=== PATIENT | female | born 1970 | race Caucasian/White ===

== ENCOUNTER 2018-03-25 11:15 | Outpatient (RCR) | payer OTHER, MEDICAID, SELFPAY ==
--- NOTE | 2018-02-07 14:50 | PT.OTN ---
Current Diagnoses Muscle weakness (generalized) (02/07/18) Other symptoms and signs involving the genitourinary system (02/07/18) Other reduced mobility (02/07/18) On September 11, 2017 our therapy services consisting of Speech, Occupational, and Physical therapy transitioned from [employer] electronic documentation system to a new [employer] electronic system. All documentation prior to September 11 can be found under [employer] saved data. From September 11 forward, all medical record documentation will be in [email or web address].
--- NOTE | 2018-02-07 15:59 | PT.OTN ---
Current Diagnoses Muscle weakness (generalized) (02/07/18) Other symptoms and signs involving the genitourinary system (02/07/18) Other reduced mobility (02/07/18) Physical Therapy Treatment Note PT-OP-A Visit Information Start: 02/07/18 12:46 Freq: Status: Active Protocol: Document 02/07/18 13:45 LRN (Rec: 02/07/18 15:51 LRN [id number]) Out-Patient Physical Therapy Visit Information Visit Information Visit Type Progress Note Visit Note Per pt 3 visits total allowed for all therapies (on [facility]). 2 visits in 2017. 6 visits in 2018. Visit Start Time 13:45 Visit Stop Time 14:45 Total Visit Minutes 60 Visit Number 8 Number of RADAR TECHNICIAN Visits 0 Evaluation Information Evaluation Date 04/17/18 PT-OP-B Current Condition Start: 02/07/18 12:46 Freq: Status: Active Protocol: Document 02/07/18 13:45 LRN (Rec: 02/07/18 15:51 LRN [id number]) Current Condition History of Current Condition Onset Date Several years ago descent felt in perineum. 2 yrs ago fall on [facility]. Current Complaints Pain at coccyx rated 8/10 with transfers sit to stand or sitting > 20' History of Current Condition Several years ago the pt felt a descent in the perineal area and noticed the descent with bowel movements. Sometimes she supports the perineum, allowing her to complete her fecal voiding 10-15% of the time. A secondary condition for which she is receiving physical therapy on [facility], is back pain and Thoracic Outlet. She had fallen onto a post on her tailbone after slipping off a metal bar at a park. She was feeling better in August of this year but incurred a back injury for which she is receiving physical therapy on [facility] and is almost rehabilitated (90% improved). Within the past 2-3 weeks she has had a worsening of tailbone pain, almost to at her initial intensity. Her tailbone pain is present with sitting greater than 15' and with sit to stand transfers. She is having less feeling of perineal descent and admits to being somewhat inconsistent with her home stretches. Treatment Goals Patient/Caregiver Goals Pt goal is to be healthy and fit and to strengthen her pelvic floor and to be painfree in tailbone. Prior Functional Status Baseline Function- ADL's Independent Baseline Function- Mobility Independent Current Functional Impairments (Reported) Functional Limitations- ADL's Painful to sit on regular chairs > 20 minutes. Functional Limitations- Mobility/Gait Painful with sit to stand transfers. PT-OP-F Manual Assessment Start: 02/07/18 12:46 Freq: Status: Active Protocol: Document 02/07/18 13:45 LRN (Rec: 02/07/18 15:51 LRN [id number]) Manual Assessments Soft Tissue Assessment Soft Tissue Mobility Assessment Tender at R>L side of coccyc. Tissue tightness of L hip. Joint Mobility Assessment Joint Mobility Assessment Decreased sacral rotation to the right. PT-OP-I Pelvic Floor Start: 02/07/18 12:46 Freq: Status: Active Protocol: Document 02/07/18 13:45 LRN (Rec: 02/07/18 15:51 LRN [id number]) Pelvic Floor Assessment Pelvic Clock Pelvic Clock 12-3 Hypertonic Pelvic Clock 3-6 Hypertonic Perineal Descent Resting Absent Bearing Absent PT-OP-J Posture/Palpation/Skin Start: 02/07/18 12:46 Freq: Status: Active Protocol: Document 02/07/18 13:45 LRN (Rec: 02/07/18 15:51 LRN [id number]) Palpation Assessment Location ASIS Palpation Details Inflare Left, Anterior Left. Sacrum in left rotation. PT-OP-K Range of Motion Start: 02/07/18 12:46 Freq: Status: Active Protocol: Document 02/07/18 13:45 LRN (Rec: 02/07/18 15:51 LRN [id number]) Hip Goniometric Range of Motion Hip Measured in Degrees Right Passive Testing Position Supine Abduction 40 Internal Rotation 40 External Rotation 75 Left Passive Testing Position Supine Abduction 40 Internal Rotation 35 External Rotation 85 Hip ROM Limitations Comments Hip AD: 25 deg's left, 30 deg' s right. PT-OP-M Strength Start: 02/07/18 12:46 Freq: Status: Active Protocol: Document 02/07/18 13:45 LRN (Rec: 02/07/18 15:51 LRN [id number]) Hip Strength Hip Manual Muscle Testing Right Flexion (L2) 4+ Good+ Extension (S1) 5 Normal External Rotation 5 Normal Internal Rotation 4+ Good+ Left Flexion (L2) 4+ Good+ Extension (S1) 4- Good- External Rotation 5 Normal Internal Rotation 3+ Fair+ PT-OP-Q Treatments Start: 02/07/18 12:46 Freq: Status: Active Protocol: Document 02/07/18 13:45 LRN (Rec: 02/07/18 15:51 LRN [id number]) Therapeutic Exercises Supine Exercises Hip ER stretch Supine Exercise Name Fig 4 Side right Lateral Hip stretch Side left Piriformis stretch Side bilateral Manual Therapy Treatment Soft Tissue Mobilization Sacral border Body Location Bilateral Mobilization Type Cross-Friction Strumming Intensity/Depth Moderate Body Position Prone Sacrocoxygeus Mobilization Type Sustained Pressure Intensity/Depth Moderate Body Position Prone Joint Mobilizations Sacral Direction R rotation of Sacrum Grade III Comments Oscillations Self-Care/Home Management Treatment Education Patient Education Home Exercise Program Activities Self-Care/Home Management Activities Reviewed HEP: Hip stretches, downward dog for ext of sacrum , self manual mob of coccyx on the left side. PT-OP-T Assessment and Plan Start: 02/07/18 12:46 Freq: Status: Active Protocol: Document 02/07/18 13:45 LRN (Rec: 02/07/18 15:51 LRN [id number]) Physical Therapy Assessment Rehab Potential Rehabilitation Potential Good Impairments Impairments Pain Posture ROM Soft Tissue Mobility Strength Other Impairments See below. Other Concerns Age Related Concerns Self employed vacation rental unit, does paper products printer work and farming. Barriers to Rehabilitation Ongoing back pain Current Thoracic Outlet Syndrome Goals Three Impairment Asymmetry of hip AD PROM: 25 deg's L, 20 deg's R. Transmission Rebuilder Goal (LTG) Hip PROM: Adduction: 30 deg's bilaterally. LTG Duration 05/13/18 Two Impairment Decr Pelvic Floor Ms Endurance : [facility]: 5 secs( decreases after 2 sec) Jail Goal (LTG) Musculoskeletal Improvements in: Endurance: 10 sec hold prior to fatigue with contraction in isolation of accessory muscles. LTG Duration 05/13/18 One Impairment Tailbone pain with prolonged sitting and with sit to stand. Jail Goal (LTG) Symptomatic improvments: Decreasing pain: Decreased tailbone pain with sitting and transfers sit to stand. LTG Duration 05/13/18 Progress Towards Goals Progress Comments Pt has returned after an absence of ~5 months with a new onset of tailbone pain complaints equal in intensity to her original pain complaints. The pt has had other health conditions prolonging her recovery with an onset of back pain and complaints of Thoracic Outlet syndrome. Pt had a +response to therapy with pain of 0.8/10 pain with sit to stand after therapy today. Assessment Summary Assessment Pt presents with pain and soft tissue tightness in the region of the Sacrococcygeal ligament and muscles attaching to the sacral border. Physical Therapy Plan Frequency and Duration Frequency of Treatment Intermittent Plan of Care Start Date 04/17/17 Plan of Care End Date 05/13/18 Therapeutic Interventions Therapeutic Interventions Home Exercise Program Joint Mobilizations Manual Therapy Neuromuscular Re-education Self-Care/Home Management Soft Tissue Mobilization Therapeutic Activities Therapeutic Exercises Modalities Biofeedback Cold Pack/Ice Massage Electric Stimulation Hot Packs Next Visit Focus/Plan Next Note Type Discharge Summary Next Visit Plan Possible DC to HEP and Home E- stim unity, if pain resolved and pt able to manage symptoms with self care.
--- NOTE | 2018-02-07 15:59 | PT.OPPOC ---
Current Diagnoses Muscle weakness (generalized) (02/07/18) Other symptoms and signs involving the genitourinary system (02/07/18) Other reduced mobility (02/07/18) Provider Visit Care Team Role Provider Type MAKAYLA Contreras Attending Provider Advanced Vice President Of Development Family Provider Primary Care Provider Specialty: Medical Address: [address] [place] [address], [phone] Email: Plan Of Care PT-OP-T Assessment and Plan Start: 02/07/18 12:46 Freq: Status: Active Protocol: Document 02/07/18 13:45 LRN (Rec: 02/07/18 15:51 LRN [id number]) Physical Therapy Assessment Rehab Potential Rehabilitation Potential Good Impairments Impairments Pain Posture ROM Soft Tissue Mobility Strength Other Impairments See below. 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 Barriers to Rehabilitation Ongoing back pain Current Thoracic Outlet Syndrome Goals Three Impairment Asymmetry of hip AD PROM: 25 deg's L, 20 deg's R. [facility] Goal (LTG) Hip PROM: Adduction: 30 deg's bilaterally. LTG Duration 05/13/18 Two Impairment Decr Pelvic Floor Ms Endurance : [facility]: 5 secs( decreases after 2 sec) [facility] Goal (LTG) Musculoskeletal Improvements in: Endurance: 10 sec hold prior to fatigue with contraction in isolation of accessory muscles. LTG Duration 05/13/18 One Impairment Tailbone pain with prolonged sitting and with sit to stand. [facility] Goal (LTG) Symptomatic improvments: Decreasing pain: Decreased tailbone pain with sitting and transfers sit to stand. LTG Duration 05/13/18 Progress Towards Goals Progress Comments Pt has returned after an absence of ~5 months with a new onset of tailbone pain complaints equal in intensity to her original pain complaints. The pt has had other health conditions prolonging her recovery with an onset of back pain and complaints of Thoracic Outlet syndrome. Pt had a +response to therapy with pain of 0.8/10 pain with sit to stand after therapy today. Assessment Summary Assessment Pt presents with pain and soft tissue tightness in the region of the Sacrococcygeal ligament and muscles attaching to the sacral border. Physical Therapy Plan Frequency and Duration Frequency of Treatment Intermittent Plan of Care Start Date 04/17/17 Plan of Care End Date 05/13/18 Therapeutic Interventions Therapeutic Interventions Home Exercise Program Joint Mobilizations Manual Therapy Neuromuscular Re-education Self-Care/Home Management Soft Tissue Mobilization Therapeutic Activities Therapeutic Exercises Modalities Biofeedback Cold Pack/Ice Massage Electric Stimulation Hot Packs Next Visit Focus/Plan Next Note Type Discharge Summary Next Visit Plan Possible DC to HEP and Home E- stim unity, if pain resolved and pt able to manage symptoms with self care. Plan of Care Dates Plan of Care Start Date 04/17/17 Plan of Care End Date 05/13/18 Please Sign and Return: I have reviewed this Plan of Care and certify that the skilled therapy services above are required to meet the patient?s needs. Physician Signature Date Printed Name and Credentials Clinical Instructor Signature Printed Name and Credentials
--- NOTE | 2018-06-24 09:21 | PT.OPDS ---
Current Diagnoses Muscle weakness (generalized) (03/25/18) Other symptoms and signs involving the genitourinary system (03/25/18) Other reduced mobility (03/25/18) Provider Visit Care Team Role Provider Type MAKAYLA Contreras Attending Provider Advanced Sales And Marketing Executive Family Provider Primary Care Provider Specialty: Medical Address: [address] [place] [address], [phone] Email: Visit Number Visit Number 9 Discharge Summary PT-OP-B Current Condition Start: 02/07/18 12:46 Freq: Status: Active Protocol: Document 02/07/18 13:45 LRN (Rec: 02/07/18 15:51 LRN [id number]) Current Condition History of Current Condition Onset Date Several years ago descent felt in perineum. 2 yrs ago fall on tailbone. Current Complaints Pain at coccyx rated 8/10 with transfers sit to stand or sitting > 20' History of Current Condition Several years ago the pt felt a descent in the perineal area and noticed the descent with bowel movements. Sometimes she supports the perineum, allowing her to complete her fecal voiding 10-15% of the time. A secondary condition for which she is receiving physical therapy on [facility], is back pain and Thoracic Outlet. She had fallen onto a post on her tailbone after slipping off a metal bar at a park. She was feeling better in August of this year but incurred a back injury for which she is receiving physical therapy on [facility] and is almost rehabilitated (90% improved). Within the past 2-3 weeks she has had a worsening of tailbone pain, almost to at her initial intensity. Her tailbone pain is present with sitting greater than 15' and with sit to stand transfers. She is having less feeling of perineal descent and admits to being somewhat inconsistent with her home stretches. Treatment Goals Patient/Caregiver Goals Pt goal is to be healthy and fit and to strengthen her pelvic floor and to be painfree in tailbone. Prior Functional Status Baseline Function- ADL's Independent Baseline Function- Mobility Independent Current Functional Impairments (Reported) Functional Limitations- ADL's Painful to sit on regular chairs > 20 minutes. Functional Limitations- Mobility/Gait Painful with sit to stand transfers. PT-OP-F Manual Assessment Start: 02/07/18 12:46 Freq: Status: Active Protocol: Document 03/25/18 11:35 LRN (Rec: 03/25/18 14:52 LRN [id number]) Manual Assessments Soft Tissue Assessment Soft Tissue Mobility Assessment Tissue tightness on L side of coccyx. Mild tightness of L QL and upper gluteals. Joint Mobility Assessment Joint Mobility Assessment Sacrum is in slight R rotation . L2-L4 in slight R rotation. PT-OP-I Pelvic Floor Start: 02/07/18 12:46 Freq: Status: Active Protocol: Document 03/25/18 11:35 LRN (Rec: 03/25/18 14:52 LRN [id number]) Pelvic Floor Assessment Pelvic Clock Pelvic Clock 12-3 Tightness Pelvic Clock Other Tightness in region of Obturator Internus. Perineal Descent Resting Absent Bearing Absent Contraction Ability Muscle Endurance (Seconds) 5 PT-OP-J Posture/Palpation/Skin Start: 02/07/18 12:46 Freq: Status: Active Protocol: Document 02/07/18 13:45 LRN (Rec: 02/07/18 15:51 LRN [id number]) Palpation Assessment Location ASIS Palpation Details Inflare Left, Anterior Left. Sacrum in left rotation. PT-OP-K Range of Motion Start: 02/07/18 12:46 Freq: Status: Active Protocol: Document 03/25/18 11:35 LRN (Rec: 03/25/18 12:49 LRN [id number]) Hip Goniometric Range of Motion Hip Measured in Degrees Right Passive Testing Position Supine Abduction 40 Internal Rotation 40 External Rotation 75 Left Passive Testing Position Supine Abduction 42 Internal Rotation 35 External Rotation 75 PT-OP-M Strength Start: 02/07/18 12:46 Freq: Status: Active Protocol: Document 02/07/18 13:45 LRN (Rec: 02/07/18 15:51 LRN [id number]) Hip Strength Hip Manual Muscle Testing Right Flexion (L2) 4+ Good+ Extension (S1) 5 Normal External Rotation 5 Normal Internal Rotation 4+ Good+ Left Flexion (L2) 4+ Good+ Extension (S1) 4- Good- External Rotation 5 Normal Internal Rotation 3+ Fair+ PT-OP-T Assessment and Plan Start: 02/07/18 12:46 Freq: Status: Active Protocol: Document 06/24/18 09:04 LRN (Rec: 06/24/18 09:21 LRN [id number]) Physical Therapy Assessment Goals Three Impairment Asymmetry of hip AD PROM: 25 deg's L, 20 deg's R. Nursing Home Goal (LTG) Hip PROM: Adduction: 30 deg's bilaterally. LTG Duration 05/13/18 Pt unavailable for final assessment Two Impairment Decr Pelvic Floor Ms Endurance : [facility]: 5 secs( decreases after 2 sec) [employer] Goal (LTG) Musculoskeletal Improvements in: Endurance: 10 sec hold prior to fatigue with contraction in isolation of accessory muscles. LTG Duration 05/13/18 Pt unavailable for final assessment One Impairment Tailbone pain with prolonged sitting and with sit to stand. Nursing Home Goal (LTG) Symptomatic improvments: Decreasing pain: Decreased tailbone pain with sitting and transfers sit to stand. LTG Duration 05/13/18 Goal partially met. Symptoms variable Assessment Summary Assessment Pt is being discharged from therapy due to lack of attendance. She was last seen 03/25/2018. The last attended visit was after ~2 months of being on an independent HEP. She showed improved symmetry of muscle tone of the hips but with asymmetry of mobility for ER/ IR. She had tightness on the left side of the coccyx, felt both externally and minimally with internal palpation; and less rotation of the sacrum/ lumbar spine. Pt forgot her vaginal electrode; therefore assessment of her PF strength and endurance was not performed. It was recommended the pt consider renting a PF e-stim unit for when episodes of increased pain occur. Physical Therapy Plan Discharge Physical Therapy Discharge Reasons No Longer Attending PT Discharge Comments Pt will need a new referral if further therapy is needed. Thank you for your referral. Next Visit Focus/Plan Next Note Type Discharge Summary Next Visit Plan .
== END 2018-07-30 12:12 ==
LOC: PHYS 11:15
PROVIDERS: Family Provider Nurse Practitioner Family; PCP Nurse Practitioner Family; Visit Provider Nurse Practitioner Family
DX: R39.89 Other symptoms and signs involving the genitourinary system (principal); Z74.09 Other reduced mobility; M62.81 Muscle weakness (generalized)
CPT/HCPCS: 97110; 97140

== ENCOUNTER → 2020-08-16 14:38 | Outpatient (CLI) | payer OTHER, MEDICAID, SELFPAY ==
[2020-08-17 10:43] LABS: COVID19 -Nasal RAPID Negative (Negative)
== END ==
PROVIDERS: PCP Physician Assistant; Visit Provider Physician Assistant
DX: Z20.822 Contact with and (suspected) exposure to COVID-19 (principal)
CPT/HCPCS: 87635; C9803

== ENCOUNTER → 2020-09-03 13:53 | Outpatient (CLI) | payer OTHER, MEDICAID, SELFPAY ==
[2020-09-05 08:18] LABS: Alpha Fetoprotein 10.1 ng/mL (0.0-8.3)
== END ==
PROVIDERS: Physician Assistant; PCP Physician Assistant; Visit Provider Family Medicine
DX: K76.89 Other specified diseases of liver (principal)
CPT/HCPCS: 82105; 82784; 83516; 86704; 86706; 86708; 86803; 87340

== ENCOUNTER → 2020-09-16 14:43 | Outpatient (CLI) | payer OTHER, MEDICAID, SELFPAY ==
--- NOTE | 2020-09-16 | DI.MRI.S_ITS ---
PROCEDURE: MR KNEE RT WO CON INDICATIONS: DERANGEMENT OF RIGHT KNEE TECHNIQUE: Noncontrast sagittal PD fast spin echo and T2 fast spin echo with fat saturation, sagittal 3-D FLASH with fat saturation; coronal T1 spin echo and PD fast spin echo with fat saturation, and axial PD fast spin echo with fat saturation through the knee. COMPARISON: Outside Facility, RG, XR KNEE 3V RIGHT, 07/07/2020, 14:45. Outside Facility, RG, XR KNEE 3V LEFT, 07/07/2020, 14:45. FINDINGS: Image quality: Excellent. Menisci: There is linear oblique high T2 signal intensity within the posterior horn medial meniscus at the meniscal root ligament insertion site, indicating radial tearing. Lateral meniscus is intact. Cruciate ligaments: The anterior and posterior cruciate ligaments appear intact. Medial structures: The medial collateral ligament appears intact. Visualized portions of the pes anserinus tendons appear normal. No abnormal bursal fluid. Lateral structures: The lateral collateral ligament, long and short heads of the biceps femoris tendon appear intact. The popliteus tendon appears normal. Iliotibial band appears normal. Anterior structures: The quadriceps and patellar tendons appear intact. Patellar alignment is normal. No femoral trochlear dysplasia or ventral trochlear prominence. Minimal edema in the superolateral aspect of the infrapatellar fat pad. Bones and cartilage: No bone marrow contusions or fractures. Mild articular cartilage loss diffusely overlies the weight-bearing aspects of the medial and lateral compartments. Articular cartilage fibrillation overlies the medial and lateral patellar facets. Joint space: There is a small knee joint effusion and a trace Carolina's cyst. Normal appearing synovial plicae are incidentally noted. IMPRESSION: 1. Medial meniscal tear. 2. Small knee joint effusion and trace Carolina's cyst. 3. Tricompartmental articular cartilage loss. Dictated by: Jessy Moreno M.D. on 09/16/2020 at 16:13 Approved by: Jessy Moreno M.D. on 09/16/2020 at 16:15
== END ==
PROVIDERS: PCP Physician Assistant; Referring Provider Physician Assistant Medical; Visit Provider Physician Assistant Medical
DX: S83.241A Other tear of medial meniscus, current injury, right knee, initial encounter (principal); M25.461 Effusion, right knee
CPT/HCPCS: 73721

== ENCOUNTER → 2021-01-14 13:24 | Outpatient (CLI) | payer OTHER, MEDICAID, SELFPAY | PROVIDERS: PCP Physician Assistant; Referring Provider Physician Assistant Medical; Visit Provider Physician Assistant Medical | DX: R19.5 Other fecal abnormalities (principal) | CPT/HCPCS: 87045; 87177; 87899 ==

== ENCOUNTER → 2021-02-14 12:09 | Outpatient (CLI) | payer OTHER, MEDICAID, SELFPAY ==
[2021-02-14 20:25] LABS: Add Manual Diff / Slide Review NO; Basophils Absolute Auto 0 /uL (0-100); Basophils Percent Auto 0.5 % (0-2); Eosinophils Absolute Auto 300 /uL (0-450); Eosinophils Percent Auto 3.1 % (2-4); Hematocrit 42.9 % (36-46); Hemoglobin 14.2 g/dL (12.0-16.0); Lymphocytes Absolute Auto 2900 /uL (1100-4500); Lymphocytes Percent Auto 33.1 % (25-40); Mean Corpuscular HGB Conc 33.1 % (30-36); Mean Corpuscular Hemoglobin 30.1 PG (26-34); Monocytes Absolute Auto 700 /uL (0-900); Monocytes Percent Auto 8.3 % (3-14); Neutrophils Absolute Auto 4900 /uL (1500-7000); Platelet Count 252 X10^3/uL (150-400); Red Blood Cell Count 4.72 X10^6/uL (4.0-5.2); Red Cell Distribution Width 13.3 % (11.6-14.8); White Blood Cell Count 8.9 X10^3/uL (4.5-11.0)
== END ==
PROVIDERS: PCP Physician Assistant; Referring Provider Physician Assistant Medical; Visit Provider Physician Assistant Medical
DX: R19.5 Other fecal abnormalities (principal)
CPT/HCPCS: 85025

== ENCOUNTER → 2021-06-28 13:24 | Outpatient (CLI) | payer OTHER, MEDICAID, SELFPAY | PROVIDERS: PCP Physician Assistant; Visit Provider Physician Assistant | DX: A07.8 Other specified protozoal intestinal diseases (principal); R11.0 Nausea | CPT/HCPCS: 87177 ==

== ENCOUNTER → 2022-01-11 10:34 | Outpatient (CLI) | payer OTHER, MEDICAID, SELFPAY ==
[2022-01-11 19:27] LABS: Add Manual Diff / Slide Review NO; Basophils Absolute Auto 100 /uL (0-100); Basophils Percent Auto 0.7 % (0-2); Eosinophils Absolute Auto 300 /uL (0-450); Eosinophils Percent Auto 2.6 % (2-4); Hematocrit 40.9 % (36-46); Hemoglobin 14.2 g/dL (12.0-16.0); Lymphocytes Absolute Auto 3200 /uL (1100-4500); Lymphocytes Percent Auto 27.4 % (25-40); Mean Corpuscular HGB Conc 34.7 % (30-36); Mean Corpuscular Hemoglobin 30.9 PG (26-34); Mean Corpuscular Volume 89.2 fL (80-100); Monocytes Absolute Auto 800 /uL (0-900); Monocytes Percent Auto 7.2 % (3-14); Neutrophils Absolute Auto 7300 /uL (1500-7000); Neutrophils Percent Auto 62.1 % (50-75); Platelet Count 237 X10^3/uL (150-400); Red Blood Cell Count 4.58 X10^6/uL (4.0-5.2); White Blood Cell Count 11.7 X10^3/uL (4.5-11.0)
[2022-01-11 19:57] LABS: Hemoglobin A1C% w Est Avg Glu 5.2 % (4.0-6.0)
[2022-01-11 20:05] LABS: Alanine Aminotransferase 39 IU/L (<35); Albumin Globulin Ratio 1.3 (1.0-2.8); Alkaline Phosphatase 74 U/L (38-126); Aspartate Aminotransferase 38 IU/L (14-36); BUN Creatinine Ratio 13.6 (6-22); Bilirubin Total 0.3 mg/dL (0.2-1.3); Blood Urea Nitrogen 12 mg/dL (7-17); Calcium 9.2 mg/dL (8.4-10.2); Carbon Dioxide 25 mmol/L (22-32); Chloride 104 mmol/L (98-107); Cholesterol 204 mg/dL (140-199); Estimated Glomerular Filt Rate > 60 mL/min (>60); Glucose 91 mg/dL (70-100); HDL Cholesterol 56 mg/dL (40-60); HEMOLYSIS < 15 (0-50); LDL Cholesterol Calculated 115 mg/dL (<100); Potassium 4.3 mmol/L (3.4-5.1); Sodium 136 mmol/L (137-145); Triglycerides 163 mg/dL (35-150)
[2022-01-11 20:15] LABS: Free T4, Direct Thyroxine 0.87 ng/dL (0.78-2.19)
[2022-01-11 20:16] LABS: Vitamin D 25 Hydroxy (D3) 32.7 ng/mL (30.0-100.0)
[2022-01-11 20:29] LABS: Thyroid Stimulating Hormone 3.19 uIU/mL (0.47-4.68)
== END ==
PROVIDERS: PCP Physician Assistant; Visit Provider Physician Assistant
DX: E55.9 Vitamin D deficiency, unspecified (principal); K75.81 Nonalcoholic steatohepatitis (NASH)
CPT/HCPCS: 80053; 80061; 82306; 83036; 84439; 84443; 85025

== ENCOUNTER → 2022-02-09 10:33 | Outpatient (CLI) | payer OTHER, MEDICAID, SELFPAY | PROVIDERS: PCP Physician Assistant; Visit Provider Physician Assistant | DX: R07.0 Pain in throat (principal) | CPT/HCPCS: 87070; 87880 ==

== ENCOUNTER → 2022-04-17 07:02 | Outpatient (CLI) | payer OTHER, MEDICAID, SELFPAY ==
[2022-04-17 22:06] LABS: COVID19 - ORCAS (NP or Nasal) Negative (Negative)
== END ==
PROVIDERS: PCP Physician Assistant; Visit Provider Physician Assistant
DX: Z20.822 Contact with and (suspected) exposure to COVID-19 (principal); Z01.812 Encounter for preprocedural laboratory examination
CPT/HCPCS: C9803; U0003

== ENCOUNTER → 2022-06-27 14:10 | Outpatient (CLI) | payer OTHER, MEDICAID, SELFPAY ==
[2022-06-27 19:48] LABS: Hemoglobin A1C% w Est Avg Glu 5.1 % (4.0-6.0)
[2022-06-27 19:55] LABS: TSH w/ Reflex to FT4 2.55 uIU/mL (0.47-4.68)
[2022-06-27 20:14] LABS: Vitamin B12 571 pg/mL (239-931)
[2022-06-30 12:35] LABS: Albumin 3.9 g/dL (2.9-4.4); Alpha-1-Globulin 0.2 g/dL (0.0-0.4); Alpha-2-Globulin 0.6 g/dL (0.4-1.0); Gamma Globulin 1.2 g/dL (0.4-1.8); Protein, Total 6.9 g/dL (6.0-8.5)
== END ==
PROVIDERS: PCP Family Medicine; Visit Provider Family Medicine
DX: G62.9 Polyneuropathy, unspecified (principal)
CPT/HCPCS: 82607; 83036; 84155; 84165; 84443

== ENCOUNTER → 2022-09-14 12:05 | Outpatient (CLI) | payer OTHER, MEDICAID, SELFPAY ==
[2022-09-14 20:09] LABS: Alanine Aminotransferase 17 IU/L (<35); Albumin 4.4 g/dL (3.5-5.0); Albumin Globulin Ratio 1.4 (1.0-2.8); Alkaline Phosphatase 72 U/L (38-126); Aspartate Aminotransferase 24 IU/L (14-36); BUN Creatinine Ratio 13.1 (6-22); Bilirubin Total 0.7 mg/dL (0.2-1.3); Blood Urea Nitrogen 13 mg/dL (7-17); C-Reactive Protein Quant 0.6 mg/dL (<1.0); Calcium 9.5 mg/dL (8.4-10.2); Carbon Dioxide 27 mmol/L (22-32); Chloride 104 mmol/L (98-107); Estimated Glomerular Filt Rate > 60 mL/min (>60); Globulin 3.2 g/dL (1.7-4.1); Glucose 64 mg/dL (70-100); HEMOLYSIS < 15 (0-50); Potassium 4.2 mmol/L (3.4-5.1); Sodium 139 mmol/L (137-145); Total Protein 7.6 g/dL (6.3-8.2)
[2022-09-14 20:39] LABS: Erythrocyte Sedimentation Rate 9 MM/HR (0-20)
[2022-09-14 20:59] LABS: TSH w/ Reflex to FT4 2.25 uIU/mL (0.47-4.68)
[2022-09-14 21:16] LABS: Hep C Virus Ab w/Reflex Quant NEGATIVE s/c (NEGATIVE)
== END ==
PROVIDERS: PCP Family Medicine; Visit Provider Family Medicine
DX: G62.9 Polyneuropathy, unspecified (principal); K76.0 Fatty (change of) liver, not elsewhere classified; R79.89 Other specified abnormal findings of blood chemistry
CPT/HCPCS: 80053; 84443; 85651; 86140; 86803

== ENCOUNTER → 2023-02-19 10:00 | Outpatient (CLI) | payer OTHER, MEDICAID, SELFPAY | PROVIDERS: PCP Family Medicine; Visit Provider Physician Assistant | DX: R19.8 Other specified symptoms and signs involving the digestive system and abdomen (principal) | CPT/HCPCS: 87045; 87177; 87329; 87899 ==

== ENCOUNTER → 2023-06-14 17:28 | Outpatient (CLI) | payer OTHER, MEDICAID, SELFPAY | PROVIDERS: PCP Family Medicine; Visit Provider Nurse Practitioner Adult Health | DX: N89.8 Other specified noninflammatory disorders of vagina (principal) | CPT/HCPCS: 87798; 87801 ==

== ENCOUNTER → 2023-08-21 15:26 | Outpatient (CLI) | payer OTHER, MEDICAID, SELFPAY ==
--- NOTE | 2023-08-21 15:27 | DI.US.S_ITS ---
PROCEDURE: US PELVIC COMPLETE INDICATIONS: FOLLOW UP FIBROID TECHNIQUE: Real-time scanning was performed of the pelvic organs, with image documentation. Additional endovaginal scanning was necessary due to incomplete visualization of the adnexal and endometrial structures by transabdominal scanning. COMPARISON: [facility], US, PELVIC COMPLETE, 11/10/2015, 11:50. FINDINGS: Uterus: Uterus is anteverted and normal in size at 8.4 x 8.8 x 5.2 cm. The myometrium is homogeneous. The endometrium measures approximately 6 mm in diameter. There is a right posterior intramural fibroid which measures 3.4 x 3.3 x 3.5 cm and a left anterior subserosal fibroid which measures 1.9 x 2.6 x 1.7 cm. Ovaries: The right ovary is not visualized. The left ovary measures 2.1 x 1.7 x 0.9 cm, with a calculated ovarian volume of 1.6 cc. The ovaries have a normal sonographic appearance. There are fewer than 12 follicles in the left ovary. No adnexal masses are seen. Other: No pathologic free abdominal or pelvic fluid. IMPRESSION: 1. Fibroid uterus. The size of the uterine fibroids on the current study are difficult to compare to the prior study dated October 20, 2020 given variation in measurements, ill-defined borders of the fibroids, and differential positioning of the uterus. We strive to produce accurate, complete, and clear reports of imaging services. To assist us in improving patient care, this report was composed using standard report templates and voice recognition software. Therefore, it may contain abnormal punctuation, insertions and/or omissions. Occasional wrong-word or sound-alike substitutions may occur. Though we review the report and make efforts to correct it, we do recommend that the report be read carefully in proper context to recognize any text inaccuracies. Dictated by: Carla Arellano M.D. on 08/22/2023 at 17:17 Approved by: Carla Arellano M.D. on 08/22/2023 at 17:21
== END ==
PROVIDERS: PCP Family Medicine; Referring Provider Nurse Practitioner Adult Health; Visit Provider Nurse Practitioner Adult Health
DX: D25.2 Subserosal leiomyoma of uterus (principal); D25.1 Intramural leiomyoma of uterus
CPT/HCPCS: 76830; 76856

== ENCOUNTER → 2023-09-27 09:41 | Outpatient (CLI) | payer OTHER, MEDICAID, SELFPAY ==
[2023-09-28 19:17] LABS: Alanine Aminotransferase 21 IU/L (<35); Albumin 4.7 g/dL (3.5-5.0); Albumin Globulin Ratio 1.7 (1.0-2.8); Alkaline Phosphatase 72 U/L (38-126); Aspartate Aminotransferase 28 IU/L (14-36); BUN Creatinine Ratio 18.2 (6-22); Bilirubin Total 0.6 mg/dL (0.2-1.3); Blood Urea Nitrogen 16 mg/dL (7-17); Calcium 9.5 mg/dL (8.4-10.2); Carbon Dioxide 27 mmol/L (22-32); Chloride 104 mmol/L (98-107); Cholesterol 255 mg/dL (140-199); Estimated Glomerular Filt Rate > 60 mL/min (>60); Globulin 2.7 g/dL (1.7-4.1); Glucose 94 mg/dL (70-100); HDL Cholesterol 56 mg/dL (40-60); HEMOLYSIS < 15 (0-50); LDL Cholesterol Calculated 166 mg/dL (<100); Potassium 4.2 mmol/L (3.4-5.1); Sodium 138 mmol/L (137-145); Total Protein 7.4 g/dL (6.3-8.2); Triglycerides 163 mg/dL (35-150)
[2023-09-28 19:35] LABS: Follicle Stimulating Hormone 29.4 mIU/mL
[2023-09-28 19:49] LABS: Testosterone 23.3 ng/dL (5.71-77.0)
[2023-09-28 20:33] LABS: Prolactin 11.4 ng/mL (3.0-18.6)
[2023-09-28 21:30] LABS: TSH w/ Reflex to FT4 5.48 uIU/mL (0.47-4.68)
[2023-09-28 21:56] LABS: Free T4, Direct Thyroxine 0.86 ng/dL (0.78-2.19)
== END ==
PROVIDERS: PCP Family Medicine; Visit Provider Family Medicine
DX: N95.0 Postmenopausal bleeding (principal); R93.89 Abnormal findings on diagnostic imaging of other specified body structures; E78.5 Hyperlipidemia, unspecified; K75.81 Nonalcoholic steatohepatitis (NASH); E28.2 Polycystic ovarian syndrome; N92.6 Irregular menstruation, unspecified
CPT/HCPCS: 80053; 80061; 83001; 84146; 84403; 84439; 84443

== ENCOUNTER → 2023-10-15 10:48 | Outpatient (CLI) | payer OTHER, MEDICAID, SELFPAY ==
--- NOTE | 2023-10-15 10:49 | DI.RAD.S_ITS ---
PROCEDURE: XR FOOT RT MIN 3V INDICATIONS: RIGHT FOOT PAIN TECHNIQUE: 3 views of the foot were acquired. COMPARISON: [facility], , FOOT 3V LEFT, 01/05/2017, 16:19. FINDINGS: Bones: No fractures or dislocations. No suspicious bony lesions. Mild degenerative changes of the right 1st metatarsophalangeal joint. Plantar calcaneal and retrocalcaneal enthesophytes. Soft tissues: No tibiotalar joint effusion. Achilles tendon appears normal. IMPRESSION: No acute bony abnormality. Plantar calcaneal and retrocalcaneal enthesophytes. Mild 1st metatarsophalangeal joint degenerative change. Dictated by: Gaudencio Holloway M.D. on 10/15/2023 at 12:34 Approved by: Gaudencio Holloway M.D. on 10/15/2023 at 12:50
--- NOTE | 2023-10-15 10:49 | DI.RAD.S_ITS ---
PROCEDURE: XR FOOT LT MIN 3V INDICATIONS: LEFT FOOT PAIN TECHNIQUE: 3 views of the foot were acquired. COMPARISON: [facility], , FOOT 3V LEFT, 01/05/2017, 16:19. FINDINGS: Bones: No fractures or dislocations. No suspicious bony lesions. Degenerative changes of the 1st metatarsophalangeal joint. Plantar calcaneal and retrocalcaneal enthesophytes. Soft tissues: No tibiotalar joint effusion. Achilles tendon appears normal. IMPRESSION: No acute bony abnormality. Degenerative changes of the 1st metatarsophalangeal joint. Plantar calcaneal and retrocalcaneal enthesophytes. Dictated by: Gaudencio Holloway M.D. on 10/15/2023 at 12:59 Approved by: Gaudencio Holloway M.D. on 10/15/2023 at 13:01
== END ==
PROVIDERS: PCP Family Medicine; Referring Provider Physical Medicine & Rehabilitation; Visit Provider Physical Medicine & Rehabilitation
DX: M72.2 Plantar fascial fibromatosis (principal); M77.31 Calcaneal spur, right foot; M76.61 Achilles tendinitis, right leg; G62.9 Polyneuropathy, unspecified
CPT/HCPCS: 73630; 99214

== ENCOUNTER → 2023-11-05 11:04 | Outpatient (CLI) | payer OTHER, MEDICAID, SELFPAY ==
[2023-11-05 20:00] LABS: Add Manual Diff / Slide Review NO; Basophils Absolute Auto 100 /uL (0-100); Basophils Percent Auto 0.8 % (0-2); Eosinophils Absolute Auto 200 /uL (0-450); Eosinophils Percent Auto 3.2 % (2-4); Hemoglobin 14.7 g/dL (12.0-16.0); Lymphocytes Absolute Auto 2700 /uL (1100-4500); Mean Corpuscular HGB Conc 34.2 % (30-36); Mean Corpuscular Hemoglobin 31.3 PG (26-34); Mean Corpuscular Volume 91.4 fL (80-100); Monocytes Absolute Auto 400 /uL (0-900); Monocytes Percent Auto 5.6 % (3-14); Neutrophils Absolute Auto 3800 /uL (1500-7000); Neutrophils Percent Auto 52.4 % (50-75); Platelet Count 247 X10^3/uL (150-400); White Blood Cell Count 7.2 X10^3/uL (4.5-11.0)
[2023-11-05 20:10] LABS: Hemoglobin A1C% w Est Avg Glu 4.9 % (4.0-6.0)
[2023-11-05 20:12] LABS: C-Reactive Protein Quant < 0.5 mg/dL (<1.0)
[2023-11-05 20:19] LABS: Luteinizing Hormone 9.13 mIU/mL
[2023-11-05 20:28] LABS: Erythrocyte Sedimentation Rate 8 MM/HR (0-20)
== END ==
PROVIDERS: Family Medicine; PCP Family Medicine; Visit Provider Family Medicine
DX: G62.9 Polyneuropathy, unspecified (principal); R79.89 Other specified abnormal findings of blood chemistry; L56.8 Other specified acute skin changes due to ultraviolet radiation; N91.2 Amenorrhea, unspecified; K75.81 Nonalcoholic steatohepatitis (NASH); E78.2 Mixed hyperlipidemia; N95.0 Postmenopausal bleeding; R93.89 Abnormal findings on diagnostic imaging of other specified body structures
CPT/HCPCS: 83002; 83036; 85025; 85651; 86038; 86140

== ENCOUNTER → 2024-09-01 10:31 | Outpatient (CLI) | payer OTHER, SELFPAY ==
[2024-09-01 18:44] LABS: Add Manual Diff / Slide Review NO; Basophils Absolute Auto 0 /uL (0-100); Basophils Percent Auto 0.3 % (0-2); Eosinophils Absolute Auto 200 /uL (0-450); Eosinophils Percent Auto 2.7 % (2-4); Hemoglobin 14.3 g/dL (12.0-16.0); Lymphocytes Absolute Auto 3500 /uL (1100-4500); Lymphocytes Percent Auto 46.4 % (25-40); Mean Corpuscular HGB Conc 34.1 % (30-36); Mean Corpuscular Hemoglobin 30.9 PG (26-34); Mean Corpuscular Volume 90.7 fL (80-100); Monocytes Absolute Auto 500 /uL (0-900); Neutrophils Absolute Auto 3400 /uL (1500-7000); Neutrophils Percent Auto 44.6 % (50-75); Platelet Count 251 X10^3/uL (150-400); Red Blood Cell Count 4.63 X10^6/uL (4.0-5.2); Red Cell Distribution Width 13.1 % (11.6-14.8); White Blood Cell Count 7.7 X10^3/uL (4.5-11.0)
[2024-09-01 18:57] LABS: Hemoglobin A1C% w Est Avg Glu 4.9 % (4.0-6.0)
[2024-09-01 19:04] LABS: Alanine Aminotransferase 24 IU/L (<35); Albumin 4.5 g/dL (3.5-5.0); Albumin Globulin Ratio 1.6 (1.0-2.8); Alkaline Phosphatase 74 U/L (38-126); Aspartate Aminotransferase 30 IU/L (14-36); BUN Creatinine Ratio 21.8 (6-22); Bilirubin Total 0.5 mg/dL (0.2-1.3); Blood Urea Nitrogen 19 mg/dL (7-17); Calcium 9.6 mg/dL (8.4-10.2); Carbon Dioxide 26 mmol/L (22-32); Chloride 105 mmol/L (98-107); Cholesterol 273 mg/dL (140-199); Estimated Glomerular Filt Rate > 60 mL/min (>60); Globulin 2.9 g/dL (1.7-4.1); Glucose 96 mg/dL (70-100); HDL Cholesterol 48 mg/dL (40-60); HEMOLYSIS 16 (0-50); LDL Cholesterol Calculated 183 mg/dL (<100); Potassium 4.4 mmol/L (3.4-5.1); Sodium 138 mmol/L (137-145); Total Protein 7.4 g/dL (6.3-8.2); Triglycerides 210 mg/dL (35-150)
[2024-09-01 19:13] LABS: Vitamin D 25 Hydroxy (D3) 46.2 ng/mL (30.0-100.0)
[2024-09-01 19:27] LABS: TSH w/ Reflex to FT4 3.36 uIU/mL (0.47-4.68)
[2024-09-01 19:33] LABS: Ferritin 44 ng/mL (11-264)
== END ==
PROVIDERS: PCP Family Medicine; Referring Provider Family Medicine; Visit Provider Family Medicine
DX: E66.9 Obesity, unspecified (principal); Z68.35 Body mass index [BMI] 35.0-35.9, adult; R79.89 Other specified abnormal findings of blood chemistry; E78.5 Hyperlipidemia, unspecified; E78.2 Mixed hyperlipidemia; K75.81 Nonalcoholic steatohepatitis (NASH); Z13.1 Encounter for screening for diabetes mellitus; E28.2 Polycystic ovarian syndrome
CPT/HCPCS: 80053; 80061; 82306; 82728; 83036; 84443; 85025

== ENCOUNTER → 2025-01-30 14:38 | Outpatient (CLI) | payer OTHER, SELFPAY | LOC: LAB 14:38 | PROVIDERS: PCP Family Medicine; Visit Provider Family Medicine | DX: N76.0 Acute vaginitis (principal) ==